=== PATIENT | female | born 1970 | race Hispanic/Latino ===

== ENCOUNTER 2017-07-14 09:14 | Emergency (ER) | payer OTHER ==
[2017-07-14 09:56] VITALS: BP 111/80
--- NOTE | 2017-07-14 10:53 | Emergency Department Report ---
ED Laceration HPI - HPI Chief Complaint: Wound/Laceration Stated Complaint: LAC TO LOWER BACK Time Seen by Provider: 07/14/17 10:23 Location: Back Severity: moderate Tetanus Status: Up to Date Laceration Symptoms: Yes Pain, No Foreign Body Sensation, No Numbness, No Weakness Other History: Patient is a 47-year-old female presents to ED stating that she fell on glass in there and sustained a cut on her back. Patient thought it was minor & cut and went to sleep and this morning she was bleeding from the laceration. Patient states that her tetanus is up-to-date she had one a few years ago. She states this incident happened around 11:30 midnight today ED Review of Systems ROS: Stated complaint: LAC TO LOWER BACK Other details as noted in HPI Constitutional: denies: chills, fever Eyes: denies: eye pain, eye discharge, vision change ENT: denies: ear pain, throat pain Respiratory: denies: cough, shortness of breath, wheezing Cardiovascular: denies: chest pain, palpitations Endocrine: no symptoms reported Gastrointestinal: denies: abdominal pain, nausea, diarrhea Genitourinary: denies: urgency, dysuria, discharge Musculoskeletal: denies: back pain, joint swelling, arthralgia Skin: denies: rash, lesions, pruritus Neurological: denies: headache, weakness, paresthesias Psychiatric: denies: anxiety, depression Hematological/Lymphatic: denies: easy bleeding, easy bruising ED Past Medical Hx - Past Medical History Previous Medical History?: Yes Hx COPD: Yes - Surgical History Past Surgical History?: No - Social History Smoking Status: Current Every Day Smoker Substance Use Type: Alcohol - Medications Home Medications: Home Medications Medication Instructions Recorded Confirmed Last Taken Type Ibuprofen [Motrin] 800 mg PO Q8HR PRN #30 tablet 07/14/17 Unknown Rx Sulfamethoxazole/Trimethoprim 1 each PO BID #14 tablet 07/14/17 Unknown Rx [Bactrim DS TAB] Laceration Physical Exam - Exam General: Vital signs noted. No distress. Alert and acting appropriately. Wound Length (cm): 6 Laceration Location: Back (lower mid close to buttock) Full Body Front + Back: 1 - 6cm linear open laceration Laceration Exam: Yes Normal Distal CMS, No Foreign Body, No Exposed Tendon, Vessel, or Nerve, No Tendon Injury ED Course Vital Signs 07/14/17 09:20 Temperature 98.1 F Pulse Rate 81 Blood Pressure 111/80 O2 Sat by Pulse 96 Oximetry - Laceration /Wound Repair Lower Back Wound Location: back Wound Length (cm): 6 Wound's Depth, Shape: superficial, linear Wound Explored: no foreign body removed Irrigated w/ Saline (ccs): 500 Betadine Prep?: Yes Anesthesia: 1% Lidocaine Volume Anesthetic (ccs): 6 Wound Repaired With: sutures Suture Size/Type: 3:0, proline Number of Sutures: 12 Layer Closure?: No Sterile Dressing Applied?: Yes ED Medical Decision Making - Medical Decision Making 47-year-old female presents with laceration. ED course: Patient received to [place] for pain. The 6cm laceration wound was prepped and draped in sterile fashion. Anesthesia was achieved with 6mL of 1% lidocaine. The wound was irrigated with 500cc NS and explored. There were no foreign bodies The wound was reapproximated in 1 layer with 12 sutures suing with two 3-0 monofilament sutures in the dermis with interrupted sutures percutaneously. There was excellent reapproximation of the wound edges. The patient tolerated the procedure without complication. Discussed the patient to return in 10-14 days for suture removal Discussed to follow up with primary care physician Critical care attestation.: If time is entered above; I have spent that time in minutes in the direct care of this critically ill patient, excluding procedure time. ED Disposition Clinical Impression: Laceration of back Qualifiers: Encounter type: initial encounter Laterality: left Qualified Code(s): S21.212A - Laceration without foreign body of left back wall of thorax without penetration into thoracic cavity, initial encounter Disposition: DC-01 TO HOME OR SELFCARE Is pt being admited?: No Does the pt Need Aspirin: No Condition: Stable Instructions: Laceration (ED), Suture Care (ED) Additional Instructions: Make sure to follow up with the primary care physician as discussed. Take all your medications as you've been prescribed. Returns to the ED in 10 days for suture removal If you have any worsening symptoms or develop new symptoms please return to ED immediately. Prescriptions: Ibuprofen [Motrin] 800 mg PO Q8HR PRN #30 tablet PRN Reason: Pain Sulfamethoxazole/Trimethoprim [Bactrim DS TAB] 1 each PO BID #14 tablet Referrals: PRIMARY CARE, [Primary Care Provider] - 3-5 Days [facility] [Outside] - 3-5 Days [facility] [Outside] - 3-5 Days Forms: Work/School Release Form(ED), Accompanied Note Time of Disposition: 12:50
[2017-07-14] MEDS ORDERED: XYLOCAINE 1% 20 mL INFILTRATI NR (11:00)
[2017-07-14] MEDS ORDERED: NACL 0.9% 500 ML IR ONE (11:05)
[2017-07-14] MEDS: NORCO 5/325 PO ONE (11:07)
[2017-07-14] MEDS: NACL 0.9% 500 ML IRRIGATION ONE (11:08)
[2017-07-14] MEDS: MOTRIN PO ONE (13:01)
== END 2017-07-14 13:18 | disposition home or self-care (01) ==
LOC: ED 09:14
DX: S21.212A Laceration without foreign body of left back wall of thorax without penetration into thoracic cavity, initial encounter (principal); J44.9 Chronic obstructive pulmonary disease, unspecified; F17.200 Nicotine dependence, unspecified, uncomplicated; W25.XXXA Contact with sharp glass, initial encounter; Y93.89 Activity, other specified; Y99.8 Other external cause status; Y92.89 Other specified places as the place of occurrence of the external cause

== ENCOUNTER 2017-09-06 11:12 | Emergency (ER) | payer SELFPAY ==
[2017-09-06 11:21] VITALS: BP 127/83
[2017-09-06 11:54] LABS: Basophils # (Auto) 0.1 K/mm3 (0.0-0.1); Basophils % (Auto) 0.9 % (0.0-1.8); Eosinophils # (Auto) 0.1 K/mm3 (0.0-0.4); Eosinophils % (Auto) 1.7 % (0.0-4.3); Hematocrit 41.1 % (30.3-42.9); Hemoglobin 13.9 gm/dl (10.1-14.3); Lymphocytes # (Auto) 1.3 K/mm3 (1.2-5.4); Lymphocytes % (Auto) 18.3 % (13.4-35.0); Mean Corpuscular HGB Conc 34 % (30-34); Mean Corpuscular Hemoglobin 30 pg (28-32); Mean Corpuscular Volume 90 fl (79-97); Monocytes # (Auto) 0.6 K/mm3 (0.0-0.8); Monocytes % (Auto) 8.7 % (0.0-7.3); Platelet Count 195 K/mm3 (140-440); Red Cell Distribution Width 14.1 % (13.2-15.2)
[2017-09-06 12:06] LABS: BUN/Creatinine Ratio 17; Blood Urea Nitrogen 12 mg/dL (7-17); Calcium 8.1 mg/dL (8.4-10.2); Hemolysis Index 8
--- NOTE | 2017-09-06 12:19 | XRay Report ---
ROUTINE CHEST, TWO VIEWS: HISTORY: Shortness of breath. The trachea, heart, mediastinal contour, lung cunningham and bony thorax are unremarkable. IMPRESSION: Unremarkable chest x-ray.
[2017-09-06] MEDS ORDERED: DUONEB *Not for PRN Use IH ONE (13:51)
[2017-09-06] MEDS ORDERED: TYLENOL PO ONE (13:51)
[2017-09-06] MEDS ORDERED: DELTASONE PO ONE (13:51)
[2017-09-06] MEDS ORDERED: MOTRIN PO ONE (13:51)
[2017-09-06] MEDS ORDERED: LEVAQUIN PO ONE (13:51)
--- NOTE | 2017-09-06 13:57 | Emergency Department Report ---
Blank Doc - Documentation Documentation: 47-year-old female past history COPD, smoking presents to the ER with 2 days of productive cough and spider bites on her left arm and left lower leg. Patient is well-appearing. On exam noticed to have right-sided rhonchi. Does have history of productive cough. Likely patient's mild COPD exacerbation. Chest x-ray unremarkable. I ordered a DuoNeb/prednisone/Levaquin her COPD exacerbation. Bedside ultrasound shows fluid pocket in the left axillary cellulitis. Her tetanus is up-to-date. Patient will need an I&D. The Levaquin will cover for bacterial skin floor. Patient has been advised about tendon rupture.
--- NOTE | 2017-09-06 14:00 | Emergency Department Report ---
ED Chest Pain HPI - General Chief Complaint: Chest Pain Stated Complaint: SPIDER BITE & SICK Time Seen by Provider: 09/06/17 13:39 Source: patient, family Mode of arrival: Ambulatory Limitations: No Limitations - History of Present Illness Initial Comments: 47-year-old female past history COPD, smoking presents to the ER with 2 days of productive cough and spider bites on her left arm and left lower leg. Patient is well-appearing. On exam noticed to have right-sided rhonchi. Does have history of productive cough. Likely patient's mild COPD exacerbation. She reports chest tightness with breathing in and coughing. Pains to 10 feels tight. No medication taken. Patient reports that she has COPD and she is out of her inhaler. She says she just cannot afford it and has not taken it for a while. Patient is supposed be on long-term inhaler and also rescue inhaler but she says she cannot afford. She says she also does not have a primary care physician. She reports an episode of fever but she does not have any fever intra-arterial. She is also reporting inset bite to her left lower leg and also abscess to her left axilla. Chest pain is only with taking deep breaths and coughing. Patient also runny nose and nasal congestion. MD Complaint: chest pain, other (skin infection) Onset/Timin -: days(s) Onset: other (coughing and inspiration) Pain Location: other (nonspecific) Pain Radiation: none Severity: severe Severity scale (0 -10): 8 Quality: tightness Consistency: intermittent Improves With: nothing Worsens With: inspiration, other (cough) re: denies: nausea, vomting, diaphoresis, dyspnea, sense of impending doom Other Symptoms: cough, fever, other (insert an abscess). denies: syncope, rash , acid taste in mouth, leg swelling, palpitations, burping Treatments Prior to Arrival: none - Related Data On Oral Contraceptives: No Previous Rx's Medication Instructions Recorded Last Taken Type Ibuprofen [Motrin] 800 mg PO Q8HR PRN #30 tablet 07/14/17 Unknown Rx Sulfamethoxazole/Trimethoprim 1 each PO BID #14 tablet 07/14/17 Unknown Rx [Bactrim DS TAB] Allergies Allergy/AdvReac Type Severity Reaction Status Date / Time No Known Allergies Allergy Verified 07/14/17 09:49 Heart Score - HEART Score History: Slightly suspicious EKG: Normal Age: 45-65 Risk factors: > 3 risk factors or hx of atherosclerotic disease Troponin: < normal limit HEART Score: 3 ED Review of Systems ROS: Stated complaint: SPIDER BITE & SICK Other details as noted in HPI Comment: All other systems reviewed and negative Constitutional: fever ENT: congestion. denies: ear pain, throat pain Respiratory: cough, shortness of breath, SOB with exertion, SOB at rest, wheezing Cardiovascular: denies: chest pain, palpitations, dyspnea on exertion, edema, syncope, paroxysmal nocturnal dyspnea Gastrointestinal: denies: abdominal pain, nausea, vomiting, diarrhea, constipation, hematemesis, melena, hematochezia Musculoskeletal: arthralgia, myalgia. denies: back pain Skin: other (abscess in spite of bite) Neurological: denies: headache, abnormal gait, vertigo ED Past Medical Hx - Past Medical History Previous Medical History?: Yes Hx COPD: Yes - Surgical History Past Surgical History?: No - Family History Family history: hypertension - Social History Smoking Status: Current Every Day Smoker Substance Use Type: None - Medications Home Medications: Home Medications Medication Instructions Recorded Confirmed Last Taken Type Ibuprofen [Motrin] 800 mg PO Q8HR PRN #30 tablet 07/14/17 Unknown Rx Sulfamethoxazole/Trimethoprim 1 each PO BID #14 tablet 07/14/17 Unknown Rx [Bactrim DS TAB] ED Physical Exam - General Limitations: No Limitations General appearance: alert, in no apparent distress - Head Head exam: Present: atraumatic, normocephalic, normal inspection - Eye Eye exam: Present: normal appearance, PERRL, EOMI Pupils: Present: normal accommodation - ENT ENT exam: Present: normal exam, normal orophraynx, mucous membranes moist, TM's normal bilaterally, normal external ear exam - Neck Neck exam: Present: normal inspection, full ROM, other (no C-spine tenderness). Absent: tenderness, meningismus, lymphadenopathy - Respiratory Respiratory exam: Present: wheezes, rhonchi, other (mild increased work of breathing). Absent: respiratory distress, rales, stridor, chest wall tenderness , accessory muscle use, prolonged expiratory - Cardiovascular Cardiovascular Exam: Present: regular rate, normal rhythm, normal heart sounds. Absent: systolic murmur, diastolic murmur - GI/Abdominal GI/Abdominal exam: Present: soft, normal bowel sounds. Absent: distended, tenderness, guarding, rebound, rigid, organomegaly, mass, bruit, pulsatile mass , hernia - Extremities Exam Extremities exam: Present: normal inspection, full ROM, normal capillary refill , other (no clubbing, cyanosis or edema. Positive pulses to all extremities and no neurovascular compromise. Patient with mild cellulitic area to posterior distal left leg. No induration and some area of scabbing noted. Area is tender to palpate.). Absent: tenderness, pedal edema, joint swelling, calf tenderness - Back Exam Back exam: Present: normal inspection, full ROM, other (ambulates without any difficulties). Absent: tenderness, CVA tenderness (R), CVA tenderness (L), muscle spasm, paraspinal tenderness, vertebral tenderness, rash noted - Neurological Exam Neurological exam: Present: alert, oriented X3, normal gait - Psychiatric Psychiatric exam: Present: normal affect, normal mood - Skin Skin exam: Present: warm, dry, intact, erythema, other (abscess left axilla, cellulitis) - Expanded Skin Exam Expanded Type of lesion: Present: abscess (left axilla), bite/sting (posterior distal left leg) Distribution of rash: other (left axilla), LLE (distally posterior) Description of rash: Present: tenderness, erythematous, swelling, indurated ( indurated to abscess and cellulitic area to the left axilla without any fluctuance. Pinpoint open to Center.). Absent: bullous, petechial, crusting, discharge ED Course Vital Signs 09/06/17 11:16 Temperature 98.2 F Pulse Rate 84 Respiratory 20 Rate Blood Pressure 127/83 O2 Sat by Pulse 98 Oximetry - Reevaluation(s) Reevaluation #1: 09/06/17 15:46 Patient receive tetanus vaccine for abscess cellulitis and insect bite. She received nebulizer treatments emergency room for COPD exacerbation and upon reevaluation, she says she is feeling better and her lungs sounds are diminished but there are no rhonchi's or wheezing. She received prednisone 60 mg by mouth for COPD exacerbation. He is to receive Levaquin 500 milligrams by mouth this will cover cellulitis and insect bite. She had no adverse reaction for medication GUS score - Gus Score Age > 65: (0) No Aspirin use within the Past 7 Days: (0) No 3 or more CAD Risk Factors: (1) Yes 2 or more Angina events in past 24 hrs: (0) No Known CAD with more than 50% Stenosis: (0) No Elevated Cardiac Markers: (0) No ST Deviation Greater than 0.5mm: (0) No GUS Score: 1 ED Medical Decision Making - Lab Data Result diagrams: 09/06/17 11:30 09/06/17 11:30 Lab Results 09/06/17 09/06/17 Range/Units 11:30 11:30 WBC 7.1 (4.5-11.0) K/mm3 RBC 4.60 (3.65-5.03) M/mm3 Hgb 13.9 (10.1-14.3) gm/dl Hct 41.1 (30.3-42.9) % MCV 90 (79-97) fl MCH 30 (28-32) pg MCHC 34 (30-34) % RDW 14.1 (13.2-15.2) % Plt Count 195 (140-440) K/mm3 Lymph % (Auto) 18.3 (13.4-35.0) % [place] % (Auto) 8.7 H (0.0-7.3) % Eos % (Auto) 1.7 (0.0-4.3) % Baso % (Auto) 0.9 (0.0-1.8) % Lymph # 1.3 (1.2-5.4) K/mm3 [place] # 0.6 (0.0-0.8) K/mm3 Eos # 0.1 (0.0-0.4) K/mm3 Baso # 0.1 (0.0-0.1) K/mm3 Seg Neutrophils % 70.4 H (40.0-70.0) % Seg Neutrophils # 5.0 (1.8-7.7) K/mm3 Sodium 143 (137-145) mmol/L Potassium 4.3 (3.6-5.0) mmol/L Chloride 105.1 (98-107) mmol/L Carbon Dioxide 28 (22-30) mmol/L Anion Gap 14 mmol/L BUN 12 (7-17) mg/dL Creatinine 0.7 (0.7-1.2) mg/dL Estimated GFR > 60 ml/min BUN/Creatinine Ratio 17 % Glucose 105 H (65-100) mg/dL Calcium 8.1 L (8.4-10.2) mg/dL Troponin T < 0.010 (0.00-0.029) ng/mL - Radiology Data Radiology results: report reviewed Chest x-ray revealed no acute cardiopulmonary processes. - Medical Decision Making ED course: Patient here complaining of cough and congestion preceded by nasal congestion and upper respiratory tract infection. She is sent to have upper respiratory tract infection cough and congestion and acute exacerbation of COPD. Patient was given Atrovent 1 nebulizer and that is also some milligram by mouth and she says she felt better. Lung sounds or wheezing prior to treatment but sounds better. Her lung sounds are diminished from chronic obstructive pulmonary disease. Patient had CBC done which was stable and her BMP was stable. Troponin was within normal limits. She is complaining of chest tightness with coughing and taking deep breaths. EKG was also stable. All lab results and chest x-ray results was discussed patient and she voiced understanding. Patient was also given Tylenol 1 g in triage area and additional Motrin 800 mg in emergency room. For pain to her left foot and inset bite in left axilla at abscess. She says she is feeling better after nebulized treatment and steroid. Patient was wanting to leave because she says she has to pick something up at 4 PM. She also reports that she cannot afford nebulizer to include albuterol nebulizer and albuterol inhaler or any medication because she doesn't have any money. She says she may be able to afford steroid but she has to wait to get the albuterol inhaler. Eyes spoke with social media executive who came and saw patient and referred patient to pharmacy with good RX which is what we usually give patient in the emergency room. I discussed the patient that she needs to be able to obtained albuterol inhaler because she'll need this along with albuterol nebulizer for her COPD exacerbation. I also discussed patient that she has an abscess under her axilla and I offered to drain site even though it is mostly indurated and she says that she doesn't think since Monday and she wants to wait. I discussed with her that she needs to apply warm compresses to the site does facilitate softening and she should return 3 days after starting antibiotic to get abscess drained. I also told her that if she developed fever and/or increasing redness to the area to include her axilla and inset bite to left foot to return to the emergency room EMMA. I also discussed with her if her wheezing, coughing and development of shortness of breath return to return to the emergency room EMMA. I was told by nurse after I spoke with patient and discussed with her that I' ll be placing her on prednisone, Z-Phillip for her lungs and Keflex for cellulitis from insect bite to her left leg and cellulitis and abscess to axilla, patient left before getting discharge instructions report. Patient was given detailed information and follow-up along with an for medication and clinic to follow up with. She was undescended for discharge instruction but she did not wait for her discharge paperwork. Critical care attestation.: If time is entered above; I have spent that time in minutes in the direct care of this critically ill patient, excluding procedure time. ED Disposition Clinical Impression: COPD with exacerbation, Upper respiratory infection with cough and congestion, Nicotine abuse, Atypical chest pain Disposition: DC- LEFT AGAINST MED ADVICE Is pt being admited?: No Does the pt Need Aspirin: No Condition: Stable Instructions: Chest Pain (ED), Upper Respiratory Infection (ED), Chronic Obstructive Pulmonary Disease (ED), Acute Cough (ED)
== END 2017-09-06 16:02 | disposition left against medical advice (07) ==
LOC: ED 11:12
DX: J44.1 Chronic obstructive pulmonary disease with (acute) exacerbation (principal); T63.301A Toxic effect of unspecified spider venom, accidental (unintentional), initial encounter; J06.9 Acute upper respiratory infection, unspecified; F17.210 Nicotine dependence, cigarettes, uncomplicated; F17.200 Nicotine dependence, unspecified, uncomplicated; Y92.89 Other specified places as the place of occurrence of the external cause
CPT/HCPCS: 36415; 71046; 80048; 84484; 85025; 87040; 93005; 93010; 94640; 99284; J7512